=== PATIENT | female | born 1990 | race Caucasian/White ===

== ENCOUNTER 2022-04-25 19:10 | Outpatient (CLI) | payer BC, SELFPAY ==
[2022-04-25] VITALS (13 sets, daily range): BP systolic 121–137; BP diastolic 74–87; PULSE 76–96; RESP 16; TEMP 36.2–36.4; O2SAT 99–100; BMI 25.4
[2022-04-25] MEDS: terbutaline 1 mg/mL INJ 0.25 MG SUBCUT (20:23)
== END 2022-04-25 21:50 | disposition home or self-care (01) ==
LOC: OPOB 19:12 → OBGYN 19:30
PROVIDERS: Visit Provider Family Medicine
DX: O26.899 Other specified pregnancy related conditions, unspecified trimester (principal); Z3A.00 Weeks of gestation of pregnancy not specified; R10.9 Unspecified abdominal pain
CPT/HCPCS: 59025; 96372; 99211; J3105